=== PATIENT | male | born 1975 | race Caucasian/White ===

== ENCOUNTER → 2016-12-08 | Outpatient (CLI) | payer OTHER ==
--- NOTE | 2016-12-09 08:16 | DI ---
Indication: [email or web address]: DIAGNOSTIC TESTING PROCEDURE: CERVICAL SPINE 4 OR 5 VIEWS: Encounter: Initial Comparison: None Findings: Alignment of the cervical spine is within normal limits. Cervicothoracic junction is intact. No acute fracture or subluxation. Minimal disk space narrowing at C5-C6. The remaining disk spaces are normal. No additional degenerative changes. No obvious bony neural foraminal stenosis. Impression: Minimal degenerative disk disease at C5-C6. .
--- NOTE | 2016-12-09 08:17 | DI ---
Indication: [email or web address]: DIAGNOSTIC TESTING PROCEDURE: SHOULDER RIGHT 2-3 VIEWS: Encounter: Initial Comparison: None Findings: No acute fracture or dislocation. Right acromioclavicular joint is widened at 13 mm diameter. Coracoclavicular interval is normal. Impression: Grade 2 acromioclavicular joint separation of uncertain age. .
--- NOTE | 2016-12-09 08:18 | DI ---
Indication: [email or web address]: DIAGNOSTIC TESTING PROCEDURE: SHOULDER LEFT 2-3 VIEWS: Encounter: Initial Comparison: None Findings: There is no acute fracture, dislocation or malalignment identified. Acromioclavicular joint width is normal. Impression: No acute osseous abnormality. .
--- NOTE | 2016-12-09 08:19 | DI ---
Indication: [email or web address]: DIAGNOSTIC TESTING PROCEDURE: HIP BILATERAL 2 VIEW: Encounter: Initial Comparison: None Findings: Left hip: No acute fracture or dislocation. Hip joint space is normal. Right hip: No acute fracture or dislocation. Hip joint space is normal. Pubic symphysis appears normal. Impression: Left hip: Normal exam Right hip: Normal exam .
--- NOTE | 2016-12-09 08:19 | DI ---
Indication: [email or web address]: DIAGNOSTIC TESTING PROCEDURE: LUMBAR SPINE 3 VIEWS: Encounter: Initial Comparison: None Findings: Minimal dextroscoliosis present. No acute fracture or subluxation. The vertebral body heights are maintained. Mild disk space narrowing at L5-S1. Remaining disk spaces are normal. Impression: Mild degenerative disk disease at L5-S1. .
--- NOTE | 2016-12-09 08:21 | DI ---
Indication: [email or web address]: DIAGNOSTIC TESTING PROCEDURE: KNEE LEFT 2 VIEW: Encounter: Initial Comparison: None Findings: There is no acute fracture, dislocation or malalignment identified. Joint spaces are normal. Impression: No acute osseous abnormality. .
--- NOTE | 2016-12-09 08:21 | DI ---
Indication: [email or web address]: DIAGNOSTIC TESTING PROCEDURE: ANKLE LEFT 2 VIEW: Encounter: Initial Comparison: None Findings: There is no acute fracture, dislocation or malalignment identified. Impression: No acute osseous abnormality. .
--- NOTE | 2016-12-09 08:21 | DI ---
Indication: [email or web address]: DIAGNOSTIC TESTING PROCEDURE: ANKLE RIGHT 2 VIEW: Encounter: Initial Comparison: None Findings: There is no acute fracture, dislocation or malalignment identified. Impression: No acute osseous abnormality. .
--- NOTE | 2016-12-09 08:21 | DI ---
Indication: [email or web address]: DIAGNOSTIC TESTING PROCEDURE: KNEE RIGHT 2 VIEW: Encounter: Initial Comparison: None Findings: There is no acute fracture, dislocation or malalignment identified. Joint spaces are maintained. Impression: No acute osseous abnormality. .
--- NOTE | 2016-12-09 08:22 | DI ---
Indication: [email or web address].[email or web address]: DIAGNOSTIC TESTING PROCEDURE: FOOT LEFT 3 VIEWS: Encounter: Initial Comparison: None Findings: There is no acute fracture, dislocation or malalignment identified. Impression: No acute osseous abnormality. .
--- NOTE | 2016-12-09 08:22 | DI ---
Indication: [email or web address].[email or web address]: DIAGNOSTIC TESTING PROCEDURE: FOOT RIGHT 3 VIEWS: Encounter: Initial Comparison: None Findings: There is no acute fracture, dislocation or malalignment identified. Impression: No acute osseous abnormality. .
== END ==
LOC: IMA 17:15
DX: Z02.89 Encounter for other administrative examinations (principal)